=== PATIENT | male | born 1990 | race Caucasian/White ===

== ENCOUNTER 2018-01-28 09:41 | Day surgery (SDC) | payer BC ==
[2018-01-28] MEDS ORDERED: FENTAnyl 50 MCG/ML VIAL (12:56)
[2018-01-28] MEDS ORDERED: SUCCINYLCHOLINE CHLORIDE 100 MG/5 ML SYG IV (13:21)
[2018-01-28] MEDS ORDERED: ROCURONIUM 50 MG INJ (13:21)
[2018-01-28] MEDS ORDERED: SUGAMMADEX SODIUM 200 MG/2 ML VIAL IV (13:21)
[2018-01-28] MEDS ORDERED: CEFAZOLIN 1 GM INJ (13:21)
[2018-01-28] MEDS ORDERED: LIDOCAINE 100 MG SYRINGE (13:21)
[2018-01-28] MEDS ORDERED: PROPOFOL 20 ML (13:21)
[2018-01-28] MEDS ORDERED: HYDROCODONE/APAP (5/325) TAB PO (15:00)
== END 2018-01-28 16:53 | disposition home or self-care (01) ==
LOC: SDS 09:41
DX: A63.0 Anogenital (venereal) warts (principal)
CPT/HCPCS: 17110; 88305